=== PATIENT | female | born 1955 | race Caucasian/White ===

== ENCOUNTER 2020-12-29 17:04 | Emergency (ER) | payer MEDICARE, OTHER ==
[~2020-12-29] VITALS: Ht 165.1 cm; Wt 81.6 kg
[2020-12-29 17:05] VITALS: BP 138/99
--- NOTE | 2020-12-29 17:24 | NUR ---
DUARTE RUBIO AT BEDSIDE FOR EVAL.
[2020-12-29] MEDS ORDERED: KETOROLAC TROMETHAMINE INJ 30 MG/ML VIAL IM ONE (17:30)
[2020-12-29] MEDS ORDERED: CYCLOBENZAPRINE 10 MG TABLET PO ONE (17:30)
[2020-12-29] MEDS ORDERED: DEXAMETHASONE SOD PHOSPHATE 4 MG/ML VIAL IM ONE (17:30)
[2020-12-29] MEDS ORDERED: KETOROLAC TROMETHAMINE 15 MG/ML VIAL ONE (17:38)
[2020-12-29] MEDS ORDERED: CYCLOBENZAPRINE 10 MG TABLET ONE (17:38)
[2020-12-29] MEDS ORDERED: DEXAMETHASONE SOD PHOSPHATE 10 MG/ML VIAL ONE (17:38)
[2020-12-29] MEDS ORDERED: TRAM50TA2 PO (17:42)
== END 2020-12-29 18:22 | disposition home or self-care (01) ==
LOC: ER 17:04
DX: M54.41 Lumbago with sciatica, right side (principal); I10 Essential (primary) hypertension; Z79.899 Other long term (current) drug therapy
CPT/HCPCS: 96372 ×2; 99284; J1100; J1885